=== PATIENT | male | born 1970 | race Caucasian/White ===

== ENCOUNTER 2017-04-18 11:43 | Emergency (ER) | payer MEDICAID, OTHER ==
[2017-04-18 11:52] VITALS: RESP 16
--- NOTE | 2017-04-18 12:26 | EDPHY ---
H & P Smoking Status: Current some day smoker Time Seen by Provider: 04/18/17 11:55 HPI/ROS: CHIEF COMPLAINT: Fall, syncope, head injury HISTORY OF PRESENT ILLNESS: 46-year-old male presents to the emergency department after he fell at work. The patient was on a scaffolding up approximately 6 feet and stepped off scaffolding. It is not certain whether the patient had a syncopal episode and then fell or patient thinks that he fell and then had a syncopal episode. He hit his head. He had a positive loss of consciousness. He complains of diffuse headache. Denies neck pain. Denies other back pain. Denies chest pain or difficulty breathing. He is having some left-sided rib pain as well. He is also having pain in his right wrist. He is right-hand dominant. Denies pain in the right elbow or shoulder. Denies abdominal pain. Denies injury to the lower extremities. He believes his tetanus shot is current. REVIEW OF SYSTEMS: Constitutional: No fever, no chills. Eyes: No double or blurry vision. ENT: No sore throat. Respiratory: No cough, no shortness of breath. Cardiac: No chest pain. Gastrointestinal: No abdominal pain, vomiting or diarrhea. Genitourinary: No dysuria. Musculoskeletal: No neck or back pain. Skin: Abrasions. No rashes. Neurological:headache. (Christal Feldman) Past Medical/Surgical History: Negative (Christal Feldman) Social History: and lives in [place] (Christal Feldman) Physical Exam: General Appearance: Alert, no distress. Mentating normally and answering questions appropriately. Abrasion to the left anterior forehead left cheek. Eyes: Pupils equal and round. Extraocular motions are all intact. Swelling to the left upper eyelid with ecchymosis. ENT: Mouth: Mucous membranes moist. No hemotympanum. No dental injury or malocclusion. Respiratory: No wheezing, rhonchi, or rales, lungs are clear to auscultation. Tenderness with palpation to the left anterior chest wall at the mid clavicular line round level 7 or 8. No palpable crepitus or other bony abnormality. Cardiovascular: Regular rate and rhythm. Gastrointestinal: Abdomen is soft and nontender, no masses, no rebound or guarding, bowel sounds normal. Specifically nontender to palpate in the left upper abdomen. Neurological: Alert and oriented x 3, cranial nerves II through XII grossly intact Skin: Warm and dry, no rashes. Musculoskeletal: Nontender to palpate along the cervical, thoracic or lumbar spine. Neck is supple. Extremities: Full range of motion and no peripheral edema. Psychiatric: Patient is oriented X 3, there is no agitation. (Christal Feldman) Constitutional: Initial Vital Signs Temperature (C) 36.5 C 04/18/17 11:50 Heart Rate 70 04/18/17 11:50 Respiratory Rate 16 04/18/17 11:50 Blood Pressure 136/117 H 04/18/17 11:50 O2 Sat (%) 96 04/18/17 11:50 O2 Delivery Mode Room Air Allergies/Adverse Reactions: latex [Latex] Allergy (Unknown, Verified 04/18/17 11:49) Home Medications: Medication Instructions Recorded Hydrocodone/APAP 5/325 [[place] 1 each PO Q4-6PRN PRN #10 tab 04/18/17 5/325 (*)] Medical Decision Making - Diagnostics Imaging: Discussed imaging studies w/ scallop binder Radiologist, I viewed and interpreted images myself - Diagnostics EKG Interpretation: EKG: Complete interpretation has been separately recorded in the [employer] archive. Summary impression: Sinus rhythm, rate 76 (Sher Rossi) Imaging Results: Imaging Impressions Chest X-Ray 04/18/17 12:10 Impression: 1. No active cardiac pulmonary disease seen. Head CT 04/18/17 12:10 Impression: 1. No significant intracranial abnormality seen. 2. Soft tissue swelling over the left frontal bone and orbit without underlying fracture. If symptoms worsen, additional imaging may be necessary. Findings discussed with Christal Feldman PA-C at 12:38 hour, 04/18/2017. Wrist X-Ray 04/18/17 12:10 Impression: 1. Nondisplaced complex distal right radial fracture with possible intra- articular involvement. 2. Calcification at the ulnar styloid could represent old fracture without union. Procedures: Patient was placed in Ortho Glass sugar-tong splint and sling and examined post application in good placement with normal ORACLE [employer]ELOPER. (Christal Feldman) ED Course/Re-evaluation: 46-year-old male presents to the emergency department after he fell off of a scaffolding hitting his head and injuring his right arm. X-rays reveal nondisplaced distal radius fracture. He was placed in a splint and sling. Patient was also having reproducible pain with palpation left anterior aspect of his chest wall. Chest x-ray reveals no obvious rib fracture or evidence of pneumothorax. The patient had a syncopal event. Laboratory studies were unremarkable. Troponin was negative. Normal sinus rhythm was noted on EKG. CT imaging of the head was negative for fractures or intracranial bleeding. Chest xray revealed no pneumothroax, no obvious rib fractures. (VanessaChristal wall) - Data Points Laboratory Results: Laboratory Results 04/18/17 12:40 04/18/17 12:40 04/18/17 04/18/17 12:40 12:40 WBC 11.61 10^3/uL H 10^3/uL (3.80-9.50) RBC 4.97 10^6/uL 10^6/uL (4.40-6.38) Hgb 16.5 g/dL g/dL (13.7-17.5) Hct 46.9 % % (40.0-51.0) MCV 94.4 fL fL (81.5-99.8) MCH 33.2 pg pg (27.9-34.1) MCHC 35.2 g/dL g/dL (32.4-36.7) RDW 11.6 % % (11.5-15.2) Plt Count 197 10^3/uL 10^3/uL (150-400) MPV 9.4 fL fL (8.7-11.7) Neut % (Auto) 83.5 % H % (39.3-74.2) Lymph % (Auto) 9.6 % L % (15.0-45.0) [place] % (Auto) 5.3 % % (4.5-13.0) Eos % (Auto) 0.8 % % (0.6-7.6) Baso % (Auto) 0.3 % % (0.3-1.7) Nucleat RBC Rel Count 0.0 % % (0.0-0.2) Absolute Neuts (auto) 9.69 10^3/uL H 10^3/uL (1.70-6.50) Absolute Lymphs (auto) 1.11 10^3/uL 10^3/uL (1.00-3.00) Absolute Monos (auto) 0.62 10^3/uL 10^3/uL (0.30-0.80) Absolute Eos (auto) 0.09 10^3/uL 10^3/uL (0.03-0.40) Absolute Basos (auto) 0.04 10^3/uL 10^3/uL (0.02-0.10) Absolute Nucleated RBC 0.00 10^3/uL 10^3/uL (0-0.01) Immature Gran % 0.5 % % (0.0-1.1) Immature Gran # 0.06 10^3/uL 10^3/uL (0.00-0.10) Sodium 140 mEq/L mEq/L (134-144) Potassium 4.3 mEq/L mEq/L (3.5-5.2) Chloride 104 mEq/L mEq/L (97-110) Carbon Dioxide 24 mEq/l mEq/l (22-31) Anion Gap 12 mEq/L mEq/L (8-16) BUN 16 mg/dL mg/dL (7-23) Creatinine 0.7 mg/dL mg/dL (0.7-1.3) Estimated GFR > 60 Glucose 91 mg/dL mg/dL (70-100) Calcium 9.8 mg/dL mg/dL (8.5-10.4) Troponin I < 0.012 ng/mL ng/mL (0.000-0.034) Medications Given: Discontinued Medications Hydrocodone Bitart/Acetaminophen ([place] 5/325) 1 tab PO EDNOW ONE Stop: 04/18/17 14:03 Last Admin: 04/18/17 14:03 Dose: 1 tab Departure - Departure Disposition: Home, Routine, Self-Care Clinical Impression: Right wrist fracture Qualifiers: Encounter type: initial encounter Fracture type: closed Qualified Code(s): S62.101A - Fracture of unspecified carpal bone, right wrist, initial encounter for closed fracture Syncope Qualifiers: Syncope type: unspecified Qualified Code(s): R55 - Syncope and collapse Head injury Qualifiers: Encounter type: initial encounter Qualified Code(s): S09.90XA - Unspecified injury of head, initial encounter Facial contusion Qualifiers: Encounter type: initial encounter Qualified Code(s): S00.83XA - Contusion of other part of head, initial encounter Condition: Good Instructions: Wrist Fracture in Adults (ED), Syncope (ED), Facial Contusion (ED ) Additional Instructions: Follow up with orthopedic surgeon this week to recheck. Ibuprofen 600 mg every 8 hours as needed for pain. Hydrocodone for severe pain as directed, cautioned drowsiness. Avoid any activity that might put you at risk for another head injury for at least 1 week. Return to the emergency department if you developed recurring episode of passing out or if you feel worse in any way. Return to the emergency department sooner if you develop worsening headache, vomiting, altered mental status, or if you feel worse in any way. Referrals: Stanislaw Weems MD [Medical Doctor] - 2-3 days without fail (Orthopedic surgeon on-call) Prescriptions: Hydrocodone/APAP 5/325 [[place] 5/325 (*)] 1 each PO Q4-6PRN PRN #10 tab PRN Reason: Pain, Severe
--- NOTE | 2017-04-18 12:37 | CPEKG ---
Heart Rate: 76 RR Interval: 789 P-R Interval: 188 QRSD Interval: 94 QT Interval: 396 QTC Interval: 446 P [place]: 63 QRS [place]: 36 T Wave [place]: 29 EKG Severity - NORMAL ECG - EKG Impression: SINUS RHYTHM Electronically Signed By: Sher Rossi 18-Apr-2017 12:51:30
[2017-04-18 12:50] LABS: % IMMATURE GRANULYOCYTES 0.5 % (0.0-1.1); ABSOLUTE IMMATURE GRANULOCYTES 0.06 10^3/uL (0.00-0.10); ADD DIFF? NO; ADD MORPH? NO; ADD SCAN? NO; ATYPICAL LYMPHOCYTE FLAG 0 (0-99); FRAGMENT RBC FLAG 0 (0-99); HEMATOCRIT 46.9 % (40.0-51.0); HEMOGLOBIN 16.5 g/dL (13.7-17.5); LEFT SHIFT FLG 0 (0-99); LIPEMIA HEMOLYSIS FLAG 90 (0-99); MEAN CELL HEMOGLOBIN 33.2 pg (27.9-34.1); MEAN CELL HEMOGLOBIN CONCENTR. 35.2 g/dL (32.4-36.7); MEAN CELL VOLUME 94.4 fL (81.5-99.8); MEAN PLATELET VOLUME 9.4 fL (8.7-11.7); PLATELET CLUMPS FLAG 0 (0-99); PLATELET COUNT 197 10^3/uL (150-400); RED BLOOD CELL COUNT 4.97 10^6/uL (4.40-6.38); RED CELL DISTRIBUTION WIDTH 11.6 % (11.5-15.2)
[2017-04-18 13:09] LABS: ANION GAP 12 mEq/L (8-16); CALCIUM 9.8 mg/dL (8.5-10.4); CARBON DIOXIDE 24 mEq/l (22-31); CHLORIDE 104 mEq/L (97-110); CREATININE 0.7 mg/dL (0.7-1.3); GLOMERULAR FILTRATION RATE > 60; GLUCOSE 91 mg/dL (70-100); POTASSIUM 4.3 mEq/L (3.5-5.2); SODIUM 140 mEq/L (134-144)
[2017-04-18 13:21] LABS: TROPONIN I < 0.012 ng/mL (0.000-0.034)
[2017-04-18] MEDS ORDERED: HYDROCODONE/APAP 5/325 TAB ONE (14:01)
[2017-04-18] MEDS ORDERED: HYDROCODONE/APAP 5/325 TAB PO ONE (14:02)
[2017-04-18 14:14] VITALS: BP 132/67; PULSE 87; TEMP 98.1; O2SAT 97
== END 2017-04-18 14:14 | disposition home or self-care (01) ==
DX: S09.90XA Unspecified injury of head, initial encounter (principal); S52.501A Unspecified fracture of the lower end of right radius, initial encounter for closed fracture; S00.83XA Contusion of other part of head, initial encounter; R55 Syncope and collapse; Z91.040 Latex allergy status; W12.XXXA Fall on and from scaffolding, initial encounter; Y92.69 Other specified industrial and construction area as the place of occurrence of the external cause; Y99.0 Civilian activity done for income or pay; Y93.89 Activity, other specified

== ENCOUNTER 2017-04-18 19:32 | Emergency (ER) | payer OTHER ==
--- NOTE | 2017-04-18 20:15 | EDPHY ---
H & P Stated Complaint: pt states feels "altered" after fall today Time Seen by Provider: 04/18/17 20:04 HPI/ROS: CHIEF COMPLAINT: Feels altered after fall today HISTORY OF PRESENT ILLNESS: This patient is a 46 year old male who presents with vomiting and feeling altered. He was evaluated in this emergency department earlier today after falling six feet from a scaffolding and sustaining a distal radius fracture. Head CT and chest x-ray today were negative for acute processes. He was sent home with a prescription for [place]. He took [place] after he went home and then developed nausea, vomiting and a feeling of confusion. He thinks that he had a syncopal episode, which caused the fall. He has a history of intermittent chest pains for a few weeks, but did not have chest pain today. He states he was evaluated before for similar symptoms with negative troponin at that time. He has not followed up with cardiology. Chest pain occurs at random times , and is not associated with exertion. He fell onto his right side today and has right-sided rib pain. The pain is reproducible with palpation and worse with deep inspiration. REVIEW OF SYSTEMS: A 10 point review of systems was performed and is negative with the exception of the elements mentioned in the history of present illness. - Personal History Current Tetanus/Diphtheria Vaccine: Yes - Medical/Surgical History PMH: Denies Hx Asthma: No Hx Chronic Respiratory Disease: No Hx Diabetes: No Hx Cardiac Disease: No Hx Renal Disease: No Hx Cirrhosis: No Hx Alcoholism: No Hx HIV/AIDS: No Hx Splenectomy or Spleen Trauma: No Other PMH: none - Social History Smoking Status: Current some day smoker Additional Social History: . Lives in [place]. Works in construction. Occasional tobacco use. - Physical Exam Exam: General Appearance: Alert, pleasant, does not appear confused, smiling Eyes: Left periorbital ecchymosis and swelling. Pupils equal and round, no conjunctival pallor or injection ENT, Mouth: Mucous membranes moist, no facial bony tenderness Neck: Normal inspection, no midline tenderness, range of motion without pain Respiratory: Right-sided chest wall tenderness, Lungs are clear to auscultation Cardiovascular: Regular rate and rhythm Gastrointestinal: Abdomen is soft and non-tender Neurological: Alert, oriented x3, cranial nerves II through XII intact, motor 5 /5, sensory intact to light touch Skin: Warm and dry Extremities: Right upper extremity is in a splint. Good capillary refill in fingers Psychiatric: Mood and affect normal Constitutional: Initial Vital Signs Temperature (C) 36.8 C 04/18/17 19:35 Heart Rate 74 04/18/17 19:35 Respiratory Rate 18 04/18/17 19:35 Blood Pressure 131/92 H 04/18/17 19:35 O2 Sat (%) 94 04/18/17 19:35 O2 Delivery Mode Room Air Allergies/Adverse Reactions: latex [Latex] Allergy (Unknown, Verified 04/18/17 11:49) Home Medications: Medication Instructions Recorded Hydrocodone/APAP 5/325 [[place] 1 each PO Q4-6PRN PRN #10 tab 04/18/17 5/325 (*)] Ondansetron Odt [Zofran Odt 4 mg 4 mg PO Q4 PRN #6 tab 04/18/17 (*)] oxyCODONE/APAP 5/325 [Percocet 1 tab PO Q4 PRN #15 tab 04/18/17 5/325 (*)] Medical Decision Making - Diagnostics EKG Interpretation: EKG interpreted by me reveals normal sinus rhythm, rate 73, no ST/T changes. Interpretation: normal EKG. ED Course/Re-evaluation: 46 y/o male presents with nausea, vomiting, and increased wrist pain secondary to a fall and fracture earlier today, possibly due to a syncopal episode. The nausea, vomiting and confusion or most likely secondary to [place]. I reviewed the previous CT scan and there are no acute findings. I do not feel that repeat CT scan is indicated in this patient. The right wrist pain is most likely secondary to the fracture. The splint does not seem too tight. However we will take off the splint and then replace it in a looser positioning to see if this helps. Plan to administer 4mg IV Zofran for nausea, 15mg IV Toradol for pain and nausea relief. Stat EKG reveals no evidence of ischemia or dysrhythmia. Given recent chest pain, I will check a repeat troponin. If this troponin is normal, I feel that he can safely follow up as an outpatient with Cardiology. 21:05 Reassessed patient. His nausea is resolved following Zofran administration. He is feeling better after IV Toradol. Plan to change his pain medication to Percocet. Zofran prescribed. Plan to discharge home in good condition pending successful PO trial. Patient strongly encouraged to follow up with Cardiology. Differential Diagnosis: Differential diagnosis includes though it is not limited to fracture, intracranial hemorrhage, pneumothorax, hemothorax, intra-abdominal hemorrhage. - Data Points Medications Given: Discontinued Medications Sodium Chloride (Ns) 1,000 mls @ 0 mls/hr IV EDNOW ONE; Wide Open PRN Reason: Protocol Stop: 04/18/17 20:17 Last Admin: 04/18/17 20:39 Dose: 1,000 mls Ketorolac Tromethamine (Toradol) 15 mg IVP EDNOW ONE Stop: 04/18/17 20:17 Last Admin: 04/18/17 20:39 Dose: 15 mg Ondansetron HCl (Zofran) 4 mg IVP EDNOW ONE Stop: 04/18/17 20: Last Admin: 04/18/17 20:39 Dose: 4 mg Ondansetron HCl (Zofran Odt 4 Mg Prepack#2) 1 btl TAKEHOME EDNOW ONE Stop: 04/18/17 21:11 Last Admin: 04/18/17 21:44 Dose: 1 btl Oxycodone/Acetaminophen (Percocet 5/325mg Prepack#4) 1 btl TAKEHOME EDNOW ONE Stop: 04/18/17 21:11 Last Admin: 04/18/17 21:44 Dose: 1 btl Departure - Departure Disposition: Home, Routine, Self-Care Clinical Impression: Vomiting Qualifiers: Vomiting type: unspecified Vomiting Intractability: non-intractable Nausea presence: with nausea Qualified Code(s): R11.2 - Nausea with vomiting, unspecified Right wrist fracture Qualifiers: Encounter type: subsequent encounter Fracture type: closed Fracture healing: with routine healing Qualified Code(s): S62.101D - Fracture of unspecified carpal bone, right wrist, subsequent encounter for fracture with routine healing Condition: Good Instructions: Oxycodone/Acetaminophen (By mouth), Wrist Fracture in Adults (ED) , Acute Nausea and Vomiting (ED) Additional Instructions: 1. Take your Zofran as prescribed as needed for nausea. 2. Rest, ice, elevation. Take your Percocet as prescribed as needed for severe pain. You may also take 650mg Tylenol as needed for pain, but do not take this while you are taking Percocet as they both contain acetaminophen. 3. Follow up with an chargeback specialist as directed earlier. Wear splint at all times until reevaluation. 4. Return to the emergency department for worsening pain, swelling, numbness, or weakness, or if you develop fever, uncontrollable vomiting, increased confusion, severe headache, vision changes, or other worsening of condition. Referrals: Holly Calzada MD [Primary Care Provider] - As per Instructions Stanislaw Weems MD [Medical Doctor] - As per Instructions Prescriptions: Ondansetron Odt [Zofran Odt 4 mg (*)] 4 mg PO Q4 PRN #6 tab PRN Reason: Nausea oxyCODONE/APAP 5/325 [Percocet 5/325 (*)] 1 tab PO Q4 PRN #15 tab PRN Reason: pain Report Scribed for: Yenny Bailey Report Scribed by: Stormy Ceja Date of Report: 04/18/17 Time of Report: 20:23 Physician Review and Approval Statement: 04/18/17 20:23 Portions of this note were transcribed by a medical assistant supervisor. I personally performed a history, physical exam, medical decision making, and confirmed accuracy of information the transcribed note.
[2017-04-18] MEDS ORDERED: ONDANSETRON 4 MG/2 ML VIAL IVP ONE (20:16)
[2017-04-18] MEDS ORDERED: NS 1,000 ML IV ONE (20:16)
[2017-04-18] MEDS ORDERED: KETOROLAC 15 MG/1 ML SDV IVP ONE (20:16)
--- NOTE | 2017-04-18 20:30 | CPEKG ---
Heart Rate: 73 RR Interval: 822 P-R Interval: 192 QRSD Interval: 100 QT Interval: 408 QTC Interval: 450 P [place]: 60 QRS [place]: 23 T Wave [place]: 18 EKG Severity - NORMAL ECG - EKG Impression: SINUS RHYTHM Electronically Signed By: Yenny Bailey 18-Apr-2017 21:12:52
[2017-04-18] MEDS ORDERED: ONDANSETRON 4MG PREPACK#2 BTL TAKEHOME ONE (21:10)
[2017-04-18] MEDS ORDERED: OXYCODONE/APAP 5/325MG PREPACK#4 BTL TAKEHOME ONE (21:10)
[2017-04-18 21:38] VITALS: BP 142/81; PULSE 74; RESP 16; TEMP 97.9; O2SAT 93
== END 2017-04-18 21:46 | disposition home or self-care (01) ==
DX: R11.2 Nausea with vomiting, unspecified (principal); S62.101A Fracture of unspecified carpal bone, right wrist, initial encounter for closed fracture; F17.200 Nicotine dependence, unspecified, uncomplicated; E86.9 Volume depletion, unspecified; Z91.040 Latex allergy status
CPT/HCPCS: 96374; J1885; J2405

== ENCOUNTER 2018-03-15 21:25 | Emergency (ER) | payer MEDICAID ==
[2018-03-15 21:31] VITALS: BP 124/90
--- NOTE | 2018-03-15 21:57 | EDPHY ---
H & P Stated Complaint: R hand inj on monday, new smell, feels "weird" Time Seen by Provider: 03/15/18 21:41 HPI/ROS: CHIEF COMPLAINT: Wound check HISTORY OF PRESENT ILLNESS: The patient presents the emergency department for wound check. He was seen here 2 days ago with a extensive table saw injury to his right hand. He had his right index finger and thumb repaired. He was noted to have an extensor tendon laceration at that point time. The wound was closed. Consultation was made with Dr. Weems who is planning to take the patient to the operating room tomorrow. The patient has been on Keflex. The patient has not changed his dressing since he was in the emergency department. He presents to the ED today complaining of a different paresthesia in his right thumb and also a reported foul smell from the dressing. He is continue to take his antibiotics. He denies any additional acute complaints. His dressing was not changed yesterday in the orthopedic surgeon's office. REVIEW OF SYSTEMS: A comprehensive 10 point review of systems is otherwise negative aside from elements mentioned in the history of present illness. Source: Patient Exam Limitations: No limitations - Personal History Current Tetanus Diphtheria and Acellular Pertussis (TDAP): Yes - Medical/Surgical History Hx Asthma: No Hx Chronic Respiratory Disease: No Hx Diabetes: No Hx Cardiac Disease: No Hx Renal Disease: No Hx Cirrhosis: No Hx Alcoholism: No Hx HIV/AIDS: No Hx Splenectomy or Spleen Trauma: No Other PMH: TBI/BACK INJ - Social History Smoking Status: Current some day smoker - Physical Exam Exam: General Appearance: Alert, no distress Respiratory: There are no retractions, lungs are clear to auscultation Cardiovascular: Regular rate and rhythm Gastrointestinal: Abdomen is soft and nontender, no masses, bowel sounds normal Neurological: Slightly decreased sensation to light touch along the lateral aspect of the right thumb Skin: No cellulitis, no purulent discharge, sutures appear clean dry and intact Extremities: Patient does have range of motion noted in his right 5th finger, extensor tendon deficit noted in the right thumb Constitutional: Initial Vital Signs Temperature (C) 36.9 C 03/15/18 21:29 Heart Rate 78 03/15/18 21:29 Respiratory Rate 18 03/15/18 21:29 Blood Pressure 124/90 H 03/15/18 21:29 O2 Sat (%) 95 03/15/18 21:29 O2 Delivery Mode Room Air Allergies/Adverse Reactions: latex [Latex] Allergy (Unknown, Verified 03/15/18 21:27) Home Medications: Medication Instructions Recorded Cephalexin [Keflex (*)] 500 mg PO TID #21 cap 03/13/18 oxyCODONE/APAP 5/325 [Percocet 1 - 2 tab PO Q4H PRN #10 tab 03/13/18 5/325 (*)] Medical Decision Making ED Course/Re-evaluation: Patient's paresthesias improved after removing his splint. The patient has no evidence of a significant cellulitis. The patient is scheduled to undergo operative exploration tomorrow. The patient's wound was redressed. He is advised to continue his antibiotics and follow up with surgery tomorrow as scheduled. Departure - Departure Disposition: Home, Routine, Self-Care Clinical Impression: Laceration of right hand Condition: Good Instructions: Laceration (ED) Additional Instructions: Follow-up tomorrow as scheduled with Dr. Weems
== END 2018-03-15 22:25 | disposition home or self-care (01) ==
DX: Z48.00 Encounter for change or removal of nonsurgical wound dressing (principal); R20.2 Paresthesia of skin; F17.200 Nicotine dependence, unspecified, uncomplicated

== ENCOUNTER → 2018-08-08 | Day surgery (SDC) | payer MEDICAID ==
[~2018-08-08] MED LIST: ASPIRIN EC 325 MG TAB PO ONE; ATROPINE SULFATE 1 MG/10 ML SYR IVP PRN; CLOPIDOGREL BISULFATE 75 MG TAB ONE; CLOPIDOGREL BISULFATE 75 MG TAB PO ONE; DIAZEPAM 5 MG TAB PO ONE; FAMOTIDINE 20 MG TAB PO ONE; HYDROCODONE/APAP 5/325 TAB PO PRN; IOPAMIDOL (ISOVUE-370) 150 ML BTL IV ONE; LIDOCAINE 1% 300 MG/30 ML SDV ONE; MIDAZOLAM 2 MG/2 ML VIAL ONE; NITROGLYCERIN 0.4 MG BTL SL PRN; NS 1,000 ML IV ONE; ONDANSETRON 4 MG/2 ML VIAL IVP PRN; OXYCODONE/APAP 5/325 TAB PO PRN; diphenhydrAMINE 25 MG CAP PO ONE; fentaNYL 100 MCG/2 ML INJ ONE
[2018-08-08 06:28] LABS: PLATELET COUNT 195 10^3/uL (150-400)
[2018-08-08 06:37] LABS: INR 0.95 (0.83-1.16); PROTIME(PATIENT) 12.9 SEC (12.0-15.0)
--- NOTE | 2018-08-08 06:39 | PDHPUP ---
History & Physical Update H&P update statement: This history and physical update is based on an assessment of the patient which was completed after admission or registration (within 24 hours), but prior to the surgery/procedure. H&P update: H&P reviewed & patient examined, no change in patient's condition since H&P completed
--- NOTE | 2018-08-08 06:40 | PDPROPOC ---
Sedation Plan of Care Sedation Plan of Care: mental status noted, patient educated of risks, benefits , alternatives, patient can tolerate sedation ASA Classification: ASA 2 Planned drugs: fentanyl, midazolam Mallampati Score: Class 2 Mallampati Reference Image: Patient passed 3-3-2 rule?: Yes
--- NOTE | 2018-08-08 10:35 | CPIP ---
DATE OF PROCEDURE: 08/08/2018 INDICATION FOR PROCEDURE: Shortness of breath, chest pain, positive stress test. PROCEDURE NOTE: 1. Nonselective right groin sheathogram. 2. 7-[place] sheath through the right common vein. 3. [place]-Kassidy catheter with latex-free [place]. 4. Bilateral coronary angiography. 5. Left heart catheterization. 6. Left angiogram. HISTORY: Briefly, this is a 47-year-old male with history of worsening shortness of breath, chest pa in as an outpatient. Patient had a stress test, which showed apical ischemia with slightly reduced e jection fraction. At this time, patient consented for right and left heart catheterization. DESCRIPTION OF PROCEDURE: After informed consent, the patient was brought to the [facility] where the right groin was prepped and draped in sterile fashion. Using lidocaine, a short 6-Paraguayan sheath in the ri t femoral artery verified angiographically. A 7-[place]agu[place] sheath in the right femoral vein. Through this, latex-free gloves and [place] were used. Wedge pressure was measured to be mean of 9, A-wave 10, V-wave 12. PA pressure systolic 30, diastolic 14, mean of 20. RV pressure systolic 32, diastolic 2, end of 8. RA pressure mean of 5, A-wave 8, V-wave 6. Cardiac output was measured to be 7.7 by Kelsey with a cardiac index of 3.45. AO sat was 94%. PA sat was 79%. [place]-Kassidy catheter was then removed . A JL4 catheter was advanced to left coronary artery. Images of the left coronary artery showed cristiano l left main, large left circumflex system giving off a large marginal 1 artery prox in the midportion , terminating to 2 marginal arteries distally which were healthy and free of disease. LAD was a long vessel which wrapped around the apex. The LAD gave off a [id number] diagonal artery which was healthy and free of disease. The LAD itself was healthy and free of disease. After these images wer e obtained, the JR4 catheter was removed. The JR4 catheter was advanced to the right coronary artery . Images of the right coronary artery revealed a normal os, prox to mid distal RCA. RPD and RPLS we re healthy and free of disease. After these were images were obtained, the JR4 catheter was removed. The pigtail catheter was advanced into the left ventricle, EDP was 12 mmHg. Left ventriculogram in the [place] projection showed an EF of 55% to 60% with no wall motion abnormalities. No pullback gradie nt between the LV and the aorta. Pigtail catheter was removed over an 0.035 wire. Right groin was c losed with manual pressure. Patient tolerated the procedure well without complications. IMPRESSION: 1. Essentially normal coronary arteries. 2. Normal ejection fraction. 3. Normal pulmonic pressures. PLAN: The patient had a false-positive stress test. Potentially his underlying symptoms could be re lated to GERD versus deconditioning. The patient will be discharged later this morning, will follow up in the office in 1 week's time. /[id number]/MODL
--- NOTE | 2018-08-08 17:02 | CPEKG ---
Test Reason : OPEN Blood Pressure : / mmHG Vent. Rate : 058 BPM Atrial Rate : 059 BPM P-R Int : 200 ms QRS Dur : 089 ms QT Int : 407 ms P-R-T Axes : 071 041 039 degrees QTc Int : [address] elev, probable normal early repol pattern Confirmed by Jeanie Gutierrez ([id number]) on 08/08/2018 5:02:33 PM Referred By: Dru Chen Confirmed By:Jeanie Gutierrez
== END | disposition home or self-care (01) ==
LOC: FCATH 05:46
PROVIDERS: ATTEND Internal Medicine Cardiovascular Disease
DX: R06.02 Shortness of breath (principal); R07.9 Chest pain, unspecified; R94.39 Abnormal result of other cardiovascular function study; E78.2 Mixed hyperlipidemia; Z87.891 Personal history of nicotine dependence
CPT/HCPCS: J1644; J2250; J3010; Q9967